=== PATIENT | male | born 1955 | race Caucasian/White ===

== ENCOUNTER 2018-08-19 12:44 | Outpatient (REF) | payer BC, SELFPAY ==
[2018-08-19 21:18] LABS: Anion Gap 9.2 mmol/L (3-11); BUN 29 mg/dL (7-18); CO2 27.8 mmol/L (21.0-32.0); Calcium 9.4 mg/dL (8.5-10.1); Chloride 102 mmol/L (98-107); Cholesterol 224 mg/dL (50-200); Glucose 104 mg/dL (70-100); HDL Cholesterol 59 mg/dL (40-60); LDL CHOLESTEROL 141 mg/dL (<100); Potassium 4.6 mmol/L (3.5-5.1); Sodium 139 mmol/L (136-145); Triglyceride 123 mg/dL (30-150)
[2018-08-21 10:10] LABS: PSA, Screening 0.2 ng/ml (0-4.5)
== END 2018-08-19 13:04 ==
LOC: NCHCN 12:44
PROVIDERS: PCP Family Medicine; Visit Provider Registered Nurse
DX: R03.0 Elevated blood-pressure reading, without diagnosis of hypertension (principal); Z00.00 Encounter for general adult medical examination without abnormal findings; Z80.42 Family history of malignant neoplasm of prostate; Z12.5 Encounter for screening for malignant neoplasm of prostate
CPT/HCPCS: 80048; 80061; 83721; 84153

== ENCOUNTER 2020-05-19 11:02 | Outpatient (REF) | payer BC, SELFPAY ==
[2020-05-19 22:49] LABS: Calculated LDL 68 mg/dL (<100); Cholesterol 151 mg/dL (<200); HDL Cholesterol 60 mg/dL (40-60); Triglyceride 119 mg/dL (<150)
[2020-05-21 08:45] LABS: PSA, Screening 0.2 ng/mL (0.0-4.5)
[2020-05-21 09:05] LABS: Hepatitis C Ab w Rflx HCV PCR Negative (Negative)
== END 2020-05-19 11:22 ==
LOC: NCHCN 11:02
PROVIDERS: PCP Family Medicine; Visit Provider Registered Nurse
DX: Z00.00 Encounter for general adult medical examination without abnormal findings (principal); R03.0 Elevated blood-pressure reading, without diagnosis of hypertension; Z11.59 Encounter for screening for other viral diseases; Z12.5 Encounter for screening for malignant neoplasm of prostate; Z80.42 Family history of malignant neoplasm of prostate
CPT/HCPCS: 80061; 84153; 86803

== ENCOUNTER 2021-12-01 20:48 | Outpatient (REF) | payer BC, SELFPAY ==
[2021-12-01 21:45] LABS: Abs Immature Grans 0.03 10^3/uL (0.0-0.06); Absolute Basophil Count 0.08 10^3/uL (0.0-0.2); Absolute Lymphocyte Count 2.51 10^3/uL (1.2-3.4); Absolute Monocyte Count 0.71 10^3/uL (0.1-0.8); Absolute Neutrophil Count 4.36 10^3/uL (1.2-6.7); Eosinophils % 1.3; HCT 43.6 % (40.0-50.0); HGB 14.2 g/dL (13.5-17.5); Immature Grans % 0.4; Lymphocytes % 32.2; MCH 29.2 pg (27.0-33.0); MCHC 32.6 % (32.0-36.0); MCV 90 fL (80-95); MPV 9.8 fL (8.0-11.0); Monocytes % 9.1; Platelet Count 251 10^3/uL (130-400); RBC 4.87 10^6/uL (4.36-5.78); RDW 13.4 % (11.8-14.1); WBC 7.79 10^3/uL (4.4-10.8)
[2021-12-01 22:11] LABS: TSH 2.21 uIU/mL (0.36-3.74)
[2021-12-01 22:13] LABS: Hemoglobin A1C 6.1 % (<5.7)
== END 2021-12-01 20:49 | disposition home or self-care (01) ==
LOC: NCHCN 20:48
PROVIDERS: PCP Family Medicine; Visit Provider Registered Nurse
DX: R53.83 Other fatigue (principal); I10 Essential (primary) hypertension; Z13.1 Encounter for screening for diabetes mellitus; Z83.3 Family history of diabetes mellitus
CPT/HCPCS: 83036; 84443; 85025

== ENCOUNTER 2022-02-08 18:51 | Outpatient (REF) | payer BC, SELFPAY ==
[2022-02-08 16:04] LABS: ALT 40 U/L (16-63); AST 27 U/L (15-37); Albumin 3.9 g/dL (3.4-5.0); Alkaline Phosphatase 83 U/L (46-116); Anion Gap 12.1 mmol/L (3-11); BUN 30 mg/dL (7-18); Bilirubin, Total 0.8 mg/dL (0.2-1.0); CO2 23.9 mmol/L (21.0-32.0); CREATININE 0.8 mg/dL (0.70-1.30); Chloride 101 mmol/L (98-107); Estimated GFR 98.83 (mL/min/1.73m2); Glucose 107 mg/dL (74-106); Potassium 4.3 mmol/L (3.5-5.1); Sodium 137 mmol/L (136-145); Total Protein 7.8 g/dL (6.4-8.2)
== END 2022-02-08 18:52 | disposition home or self-care (01) ==
LOC: NCHCN 18:51
PROVIDERS: PCP Family Medicine; Visit Provider Registered Nurse
DX: I10 Essential (primary) hypertension (principal); R73.03 Prediabetes
CPT/HCPCS: 80053

== ENCOUNTER 2023-03-14 13:05 | Outpatient (REF) | payer BC, SELFPAY ==
[2023-03-14 14:18] LABS: Anion Gap 9.7 mmol/L (3-11); BUN 25 mg/dL (7-18); CO2 22.3 mmol/L (21.0-32.0); CREATININE 0.8 mg/dL (0.70-1.30); Calcium 9.1 mg/dL (8.5-10.1); Chloride 104 mmol/L (98-107); Estimated GFR 98.21 (mL/min/1.73m2); Glucose 135 mg/dL (74-106); Sodium 136 mmol/L (136-145)
[2023-03-14 14:23] LABS: Hemoglobin A1C 6.1 % (<5.7)
== END 2023-03-14 13:06 | disposition home or self-care (01) ==
LOC: NCHCN 13:05
PROVIDERS: PCP Family Medicine; Visit Provider Family Medicine
DX: I10 Essential (primary) hypertension (principal); R73.03 Prediabetes; Z00.00 Encounter for general adult medical examination without abnormal findings
CPT/HCPCS: 80048; 83036

== ENCOUNTER 2024-03-12 12:51 | Outpatient (REF) | payer BC, SELFPAY ==
--- OUTSIDE RECORDS SUMMARY | 2024-03-12 12:59 | XMS_ITS ---
Author Organization Unknown Address [address] [place] [address] [phone] Phone Care Team Providers Care Plastics Repairer Name Role Phone FROSTFIELD CAMPBELLHA Alyssia Attending Unavailable Social History Type Status Start Date End Date Code Code Syst em Smoking History Current every day smoker 967611149 SNOMED CT Sex Male Medications Medication Start Date End Date Route Frequency Dose Code Code System Medication Instructions Home Meds Ibuprofen 200MG Oral Tablet 05/16/2023 Unknown ORAL EVERY 6 HOURS 3 TABLET 073810 RxNorm TAKE 3 TABLET ORAL THREE TIMES PER DAY FOR 3 DAYS THEN NEEDED FOR PAIN Assessment You had the following problems:CONTUSION OF LEFT FOOT, INITIAL ENCOUNTER Hospital Discharge Instructions Should you have any questions prior to discharge, please contact a member of your healthcare team. If you have left the hospital and have any questions, please contact your primary care physician. Reason For Referral No Data Found Problems Problem Start Date Resolved Date Status Code Code System CONTUSION OF LEFT FOOT, INITIAL ENCOUNTER active [id number] SNOME D-CT Allergies and Adverse Reactions Allergy Substance Reaction Severity Start Date Concern Status Co de Code System No Known Drug Allergies Active 311596288 SNOMED-CT Plan of Treatment CT CHEST W/O CONTRAST 04/27/2023 US ABDOMEN LIMITED 1 ORGAN 01/10/2022 CT CHEST W/O CONTRAST 01/10/2022 Encounters Encounter Diagnosis Start Date Code Code Sys tem Canceled operative procedure 04/13/2023 12433981 SNOMED-CT Personal Care Team Section Performer Name Performer Role Active Date Inactive Da te
--- OUTSIDE RECORDS SUMMARY | 2024-03-12 12:59 | XMS_ITS ---
Author Organization Unknown Address [address] [place] [address] [phone] Phone Care Team Providers Care Piper Installer Name Role Phone FROST DESI Cade Attending Unavailable Results CT LDCT FOR LUNG CA SCREEN - Completed: 01/10/2022 08:29 LOINC: \TM00\\12PI\\LM03\\RM80\\JOSUÉ o\\BM09\ [place] [address] ---------NAME--------- NUMBER SEX AGE ADMIT DISC. XRAY# F/C TYPE SEDA Abdullahi [id number] M 66 01/10/22 01/10/22 BB0 O/P DATE OF : 1955 M/R# [id number] PH#: [phone] \MRx\ LOCATION: TRANSCRIBED: 01/10/22 9:02 CT LDCT FOR LUNG CA SCREEN 15992 COMPLETED:01/10/22 8:[id number]: HX OF SMOKING PHYSICIAN: MARGOT R A D I O L O G Y R E P O R T Study Description: CT LDCT FOR LUNG CA SCREEN Reason for Study: HXOFSMOKING Findings: FINDINGS Images obtained through the upper abdomen show unremarkable appearance of visualized portions of the liver and spleen. Note is made of coronary artery calcification. There is no mediastinal or hilar adenopathy. Mediastinal vascular structures appear intact by noncontrast criteria. Tracheobronchial tree appears intact. No pleural effusion or pleural-based mass. The lungs show changes of severe centrilobular emphysema with no significant intrapulmonary nodule identified. IMPRESSION [Negative LDCT of the chest. Lung RADS category 1, negative. Continue annual screening with LDCT in 12 months. Impressions: Report Digitally Signed by Tito Morrow on 01/10/2022 09:02 AM EDT Electronically Signed By: TITO MORROW MD Date/Time: 01/10/22 09:02 US AORTA SCREENING - Complet ed: 01/10/2022 09:11 LOINC: \TM00\\12PI\\LM03\\RM80\\JOSUÉ o\\BM09\ [place] [address] ---------NAME--------- NUMBER SEX AGE ADMIT DISC. XRAY# F/C TYPE SEDA Abdullahi [id number] M 66 01/10/22 01/10/22 BB0 O/P DATE OF : 1955 M/R# [id number] PH#: [phone] \MRx\ LOCATION: TRANSCRIBED: 01/10/22 9:46 US AORTA SCREENING 58392 COMPLETED:01/10/22 9:11 [facility] [id number] Reason US exam: AORTIC DILATION PHYSICIAN: MARGOT R A D I O L O G Y R E P O R T Limited ultrasound examination was performed for evaluation of the aorta. There is no abdominal aortic aneurysm. The left and right common iliac vessels are within normal limits in diameter. No retroperitoneal fluid collection seen. Abdominal aorta is of normal diameter, no abdominal aortic aneurysm. Report Digitally Signed by Tito Morrow on 01/10/2022 09:46 AM EDT Electronically Signed By: TITO MORROW MD Date/Time: 01/10/22 09:46 Social History Type Status Start Date End Date Code Code Syst em Smoking History Current every day smoker [id number] SNOMED CT Sex Male Medications Medication Start Date End Date Route Frequency Dose Code Code System Medication Instructions Home Meds Ibuprofen 200MG Oral Tablet 05/16/2023 Unknown ORAL EVERY 6 HOURS 3 TABLET 410882 RxNorm TAKE 3 TABLET ORAL THREE TIMES [...] CONTUSION OF LEFT FOOT, INITIAL ENCOUNTER active [id number] SNOME D-CT Allergies and Adverse Reactions Allergy Substance Reaction Severity Start Date Concern Status Co de Code System No Known Drug Allergies Active 357666185 SNOMED-CT Plan of Treatment CT CHEST W/O CONTRAST 04/27/2023 US ABDOMEN LIMITED 1 ORGAN 01/10/2022 CT CHEST W/O CONTRAST 01/10/2022 Encounters Encounter Diagnosis Start Date Code Code Sys tem Personal history of nicotine dependence 01/10/2022 SNOMED-CT Personal Care Team Section Performer Name Performer Role Active Date Inactive Da te
--- OUTSIDE RECORDS SUMMARY | 2024-03-12 13:00 | XMS_ITS ---
Author Organization Unknown Address [address] [place] [address] [phone] Phone Care Team Providers Care Truck And Transport Mechanic Name Role Phone LUCA SMITH Registered Nurse Unavailable MARIA Choe Attending Unavailable KATHRIN Choe ER Unavailable LUIS M SHANE Primary Unavailable UNLISTED PROVIDER - REQUESTED Xhandoff Un available Results XR FOOT 3V LT* - Completed: 05/11/2023 09:02 LOINC: [place], [place] [address] PACS RIGGING AND CONTR[employer]S AIRCRAFT MECHANIC REPORT Patient Name: MARK STACK MRN: Sex: : Age: [id number] M 1955 67 Account: Accession: Admit: StayType: [id number] 05/11/2023 E/R Ordered: Order ID: Submitted: Ordering Provider: 05/11/2023 08:49 [id number] ZACHARY FARRIS Completed: Technologist: Resulted: 05/11/2023 09:02 PW 05/11/2023 09:44 Study Description: XR FOOT 3V LT Study Reason: Pain Technique: 2D digital imaging was performed. 3 images were obtained. COMPARISON: None. FINDINGS: Bones: No acute fractures present. No bony destructive lesion is seen. There is a small plantar osteophyte. There is an enthesophyte at the posterior calcaneus. Joints: No dislocation is present. The joint spaces are well maintained. Soft tissues: Unremarkable. IMPRESSION: No acute abnormality. Report Digitally Signed by Kaden Fairchild on 05/11/2023 09:44 AM EST Social History Type Status Start Date End Date Code Code Syst em Smoking History Current every day smoker 057080692 SNOMED CT Sex Male Vital Signs Vital Sign Value Unit [place] Value [place] Unit Date/Time Recent/Initial? Code Code System Body Mass Index 29.84 kg/m2 05/11/2023 08:48 Initial 41114 -5 LOINC Systolic Blood Pressure 151 mm[Hg] 05/11/2023 08:48 Initial 8480- 6 LOINC Diastolic Blood Pressure 105 mm[Hg] 05/11/2023 08:48 Initial 8462- 4 LOINC Body Surface Area 2.25 m2 05/11/2023 08:48 Initial 3140- 1 LOINC Height 182.880 0 cm 72.00 in 05/11/2023 08:48 Initial 8302- 2 LOINC O2 Saturation 97 % 2022 08:48 Initial 56775 -5 LOINC Pulse 61.0 /min 05/11/2023 08:48 Initial 8867- 4 LOINC Respiration 18 /min 05/11/20 08:48 Initial 9279- 1 LOINC Temperature 36.2 Juhi 97.2 F 05/11/20 08:48 Initial 8310- 5 LOINC Weight 99.79 kg 220.00 lbs 05/11/2023 08:48 Initial 25643 -7 LOINC Medications Medication Start Date End Date Route Frequency Dose Code Code System Medication Instructions Home Meds Ibuprofen 200MG Oral Tablet 05/16/2023 Unknown ORAL EVERY 6 HOURS 3 TABLET 626324 RxNorm TAKE 3 TABLET ORAL THREE TIMES [...] CONTUSION OF LEFT FOOT, INITIAL ENCOUNTER active [id number] SNOME D-CT Allergies and Adverse Reactions Allergy Substance Reaction Severity Start Date Concern Status Co de Code System No Known Drug Allergies Active 598541419 SNOMED-CT Plan of Treatment CT CHEST W/O CONTRAST 04/27/2023 US ABDOMEN LIMITED 1 ORGAN 01/10/2022 CT CHEST W/O CONTRAST 01/10/2022 Encounters Encounter Diagnosis Start Date Code Code Sys tem 05/11/2023 [id number] SNOMED-CT Personal Care Team Section Performer Name Performer Role Active Date Inactive Da te
--- OUTSIDE RECORDS SUMMARY | 2024-03-12 13:00 | XMS_ITS ---
Author Organization Unknown Address [address] [place] [address] [phone] Phone Care Team Providers Care Granite Cutter Name Role Phone MARGOT Cade Attending Unavailable LUIS M SHANE Primary Unavailable Results CT LDCT FOR LUNG CA SCREEN - Completed: 04/27/2023 08:20 [facility] [place], [place] [address] PACS FINAL INSPECTOR MOTORCYLES REPORT Patient Name: MARK STACK MRN: Sex: : Age: [id number] M 1955 67 Account: Accession: Admit: StayType: [id number] 04/27/2023 O/P Ordered: Order ID: Submitted: Ordering Provider: 04/27/2023 07:56 [id number] DESI GUZMAN Completed: Technologist: Resulted: 04/27/2023 08:20 SLG 04/27/2023 08:54 Study Description: CT LDCT FOR LUNG CA SCREEN Study Reason: FORMER SMOKER TECHNIQUE: Imaging Protocol: Low Dose Technique CONTRAST MATERIAL None COMPARISON: No exams were available for comparison FINDINGS: LUNGS: COPD emphysematous changes again noted.. No new infiltrates nor pleural effusions. No significant pulmonary nodules. No findings in the trachea and mainstem bronchi. No bronchiectasis. MEDIASTINUM: There is no obvious hilar nor mediastinal adenopathy. CARDIAC: Heart size is normal. Coronary artery calcification again noted. There is no pericardial effusion. The diameter of the ascending thoracic aorta is enlarged, measuring 4.5 cm. Similar to previous. Diameter of the mid aortic arch measures 3.2 cm, also mildly prominent and the diameter of the proximal descending thoracic aorta measures 3.2 cm, mildly prominent. Diameter of the descending thoracic aorta is also mildly prominent. OTHER: No adrenal masses. No splenomegaly. OSSEOUS: No significant osseous lesions. No fractures. IMPRESSION: 1. No significant pulmonary nodules. No infiltrates nor pleural effusions. 2. Enlarged diameter of the ascending thoracic aorta as described above, measuring 4.5 cm Lung RADS category: 1S-no significant pulmonary nodules. Aortic finding as above. Report Digitally Signed by Wyatt Joshi on 04/27/2023 08:54 AM EST 04/27/[email or web address] Cheers In via fax Social History Type Status Start Date End Date Code Code Syst em Smoking History Current every day smoker 544775498 SNOMED CT Sex Male Medications Medication Start Date End Date Route Frequency Dose Code Code System Medication Instructions Home Meds Ibuprofen 200MG Oral Tablet 05/16/2023 Unknown ORAL EVERY 6 HOURS 3 TABLET 329066 RxNorm TAKE 3 TABLET ORAL THREE TIMES [...] CONTUSION OF LEFT FOOT, INITIAL ENCOUNTER active 67639536416357329 SNOME D-CT Allergies and Adverse Reactions Allergy Substance Reaction Severity Start Date Concern Status Co de Code System No Known Drug Allergies Active 676685801 SNOMED-CT Plan of Treatment CT CHEST W/O CONTRAST 04/27/2023 US ABDOMEN LIMITED 1 ORGAN 01/10/2022 CT CHEST W/O CONTRAST 01/10/2022 Encounters Encounter Diagnosis Start Date Code Code Sys tem Encounter for screening for malignant neoplasm of respiratory organs 04/27/2023 SNOMED-CT Personal Care Team Section Performer Name Performer Role Active Date Inactive Da te
--- OUTSIDE RECORDS SUMMARY | 2024-03-12 13:00 | XMS_ITS ---
Author Organization Unknown Address [address] [place] [address] [phone] Phone Care Team Providers Care Wood Patternmaker Name Role Phone SILVIA VILLA Registered Nurse Unavailable MARIA Choe Attending Unavailable LUIS M SHANE Primary Unavailable UNLISTED PROVIDER - REQUESTED Xhandoff Un available Social History Type Status Start Date End Date Code Code Syst em Smoking History Current every day smoker 907664176 SNOMED CT Sex Male Vital Signs Vital Sign Value Unit [place] Value [place] Unit Date/Time Recent/Initial? Code Code System Body Mass Index 28.63 kg/m2 05/16/2023 09:20 Initial 51802 -5 [facility] Systolic Blood Pressure 173 mm[Hg] 05/16/2023 09:20 Initial 8480- 6 [facility] Diastolic Blood Pressure 111 mm[Hg] 05/16/2023 09:20 Initial 8462- 4 [facility] Body Surface Area 2.27 m2 05/16/2023 09:20 Initial 3140- 1 [facility] Height 186.690 0 cm 73.50 in 05/16/2023 09:20 Initial 8302- 2 [facility] O2 Saturation 98 % 2022 09:20 Initial 97171 -5 [facility] Pulse 65.0 /min 05/16/2023 09:20 Initial 8867- 4 [facility] Respiration 17 /min 05/16/20 09:20 Initial 9279- 1 [facility] Temperature 35.6 Juhi 96.1 F 05/16/20 09:20 Initial 8310- 5 [facility] Weight 99.79 kg 220.00 lbs 05/16/2023 09:20 Initial 98240 -7 [facility] Medications Medication Start Date End Date Route Frequency Dose Code Code System Medication Instructions Home Meds Ibuprofen 200MG Oral Tablet 05/16/2023 Unknown ORAL EVERY 6 HOURS 3 TABLET 545789 RxNorm TAKE 3 TABLET ORAL THREE TIMES [...] CONTUSION OF LEFT FOOT, INITIAL ENCOUNTER active 02418451060195688 SNOME D-CT Allergies and Adverse Reactions Allergy Substance Reaction Severity Start Date Concern Status Co de Code System No Known Drug Allergies Active 398980026 SNOMED-CT Plan of Treatment CT CHEST W/O CONTRAST 04/27/2023 US ABDOMEN LIMITED 1 ORGAN 01/10/2022 CT CHEST W/O CONTRAST 01/10/2022 OUTPATIENT PLAN: Additional Physician Instructions: Ice, keep foot elevated above heart as much as possible, consider using ALESHIA wrap. Wear stiff shoes while healing. Discharge Medications Medication Dosage Route Frequency Prescribing MD Special Instructions Ibuprofen 200MG Oral Tablet 3 TABLET ORAL EVERY 6 HOURS MARIA Choe TAKE 3 TABLET ORAL THREE TIMES PER DAY FOR 3 DAYS THEN NEEDED FOR PAIN HOSPITAL COURSE AND TESTING: Medications given this visit: Ordered & Completed Meds Table Ordered Medication Start Date/Time Dosage Route Frequency Status Ibuprofen 200MG Oral Tablet 05/16/2023 00:00 3 TABLET ORAL EVERY 6 HOURS active Lab Results: This Visit: No Labs Available RADIOLOGY RESULTS: Study Description: XR FOOT 3V LT Findings: Bones: No acute fractures present. No bony destructive lesion is seen. There is a small plantar osteophyte. There is an enthesophyte at the posterior calcaneus. Joints: No dislocation is present. The joint spaces are well maintained. Soft tissues: Unremarkable. Impression: No acute abnormality. Encounters Encounter Diagnosis Start Date Code Code Sys tem 05/16/2023 [id number] SNOMED-CT Personal Care Team Section Performer Name Performer Role Active Date Inactive Da lian
--- OUTSIDE RECORDS SUMMARY | 2024-03-12 13:01 | XMS_ITS ---
Author Organization Unknown Address [address] [place] [address] [phone] Phone Care Team Providers Care Tmh Teacher Name Role Phone MARGOT WEEKS Attending Unavailable Results US RENAL OR AORTA - Complete d: 11/19/2020 17:12 LOINC: ABDOMINAL ULTRASOUND, LIMITE D:Limited ultrasound was performed to evaluate for possible abdominal aortic aneurysm. Abdominal aorta is within normal limits in diameter, mid aortic diameter is about 21 mm. Right and left common iliac arteries are also within normal limits in diameter. Maximal diameter right common iliac about 10 mm and left common iliac about 13 mm. No retroperitoneal fluid collection seen. CONCLUSION:No evidence of abdominal aortic aneurysm. Dictated by: SYEDA MORROW M.D. RADIOLOGIST Transcribed by: WILLIAM 06/17/21/09:28 D Monday, June 14, 2021 12:10:24 PM [id number] Electronically Reviewed and Signed By: TITO MORROW M.D. RADIOLOGIST 07/01/21 08:41 Copy for: MARGOT CAMPBELLHA via link Social History Type Status Start Date End Date Code Code Syst em Smoking History Current every day smoker 729703101 SNOMED CT Sex Male Medications Medication Start Date End Date Route Frequency Dose Code Code System Medication Instructions Home Meds Ibuprofen 200MG Oral Tablet 05/16/2023 Unknown ORAL EVERY 6 HOURS 3 TABLET 643845 RxNorm TAKE 3 TABLET ORAL THREE TIMES [...] CONTUSION OF LEFT FOOT, INITIAL ENCOUNTER active 64140548415711627 SNOME D-CT Allergies and Adverse Reactions Allergy Substance Reaction Severity Start Date Concern Status Co de Code System No Known Drug Allergies Active 307510737 SNOMED-CT Plan of Treatment CT CHEST W/O CONTRAST 04/27/2023 US ABDOMEN LIMITED 1 ORGAN 01/10/2022 CT CHEST W/O CONTRAST 01/10/2022 Encounters Encounter Diagnosis Start Date Code Code Sys tem Thoracic aortic ectasia 11/19/2020 SN ED-CT Personal Care Team Section Performer Name Performer Role Active Date Inactive Da lian
[2024-03-12 14:37] LABS: Anion Gap 8.8 mmol/L (3-11); BUN 15 mg/dL (7-18); CO2 25.2 mmol/L (21.0-32.0); CREATININE 0.9 mg/dL (0.70-1.30); Calcium 9.2 mg/dL (8.5-10.1); Chloride 106 mmol/L (98-107); Estimated GFR 94.19 (mL/min/1.73m2); Glucose 105 mg/dL (74-106); Sodium 140 mmol/L (136-145)
[2024-03-12 15:25] LABS: Hemoglobin A1C 5.9 % (<5.7)
== END 2024-03-12 12:52 | disposition home or self-care (01) ==
LOC: NCHCN 12:51
PROVIDERS: PCP Family Medicine; Visit Provider Family Medicine
DX: I10 Essential (primary) hypertension (principal); R73.03 Prediabetes
CPT/HCPCS: 80048; 83036

== ENCOUNTER 2024-04-15 09:35 | Outpatient (REF) | payer BC, SELFPAY ==
[2024-04-15 15:32] LABS: HGB 15.9 g/dL (13.5-17.5); MCH 30.1 pg (27.0-33.0); MCHC 32.4 % (32.0-36.0); MCV 93 fL (80-95); RBC 5.29 10^6/uL (4.36-5.78); RDW 13.4 % (11.8-14.1); RDW-SD 45.7 fL
[2024-04-15 15:33] LABS: Absolute Basophil Count 0.01 10^3/uL (0.0-0.2); Absolute Eosinophil Count 0.01 10^3/uL (0.0-0.7); Absolute Monocyte Count 0.05 10^3/uL (0.1-0.8); Absolute Neutrophil Count 0.53 10^3/uL (1.2-6.7); Basophils % 0.1 %; Eosinophils % 0.1 %; Lymphocytes % 2.2 %; MPV 10.9 fL (8.0-11.0); Monocytes % 0.6 %; Neutrophils % 5.9 %; Platelet Count 177 10^3/uL (130-400)
[2024-04-15 15:34] LABS: Abs Immature Grans 0.03 10^3/uL (0.0-0.06)
[2024-04-15 15:57] LABS: ALT 43 U/L (16-63); AST 27 U/L (15-37); Albumin 4.2 g/dL (3.4-5.0); Alkaline Phosphatase 114 U/L (46-116); Anion Gap 12.6 mmol/L (3-11); BUN 13 mg/dL (7-18); Bilirubin, Total 0.67 mg/dL (0.2-1.0); CO2 24.4 mmol/L (21.0-32.0); CREATININE 0.9 mg/dL (0.70-1.30); Calcium 9.5 mg/dL (8.5-10.1); Calculated LDL 73 mg/dL (<100); Chloride 105 mmol/L (98-107); Cholesterol 149 mg/dL (<200); Estimated GFR 94.19 (mL/min/1.73m2); Glucose 103 mg/dL (74-106); HDL Cholesterol 58 mg/dL (40-60); Lipase 34 U/L (16-77); Potassium 4.6 mmol/L (3.5-5.1); Sodium 142 mmol/L (136-145); Triglyceride 91 mg/dL (<150)
[2024-04-15 16:17] LABS: Amylase 44 U/L (25-115)
== END 2024-04-15 09:36 | disposition home or self-care (01) ==
LOC: NCHCN 09:35
PROVIDERS: PCP Family Medicine; Visit Provider Family Medicine
DX: K57.92 Diverticulitis of intestine, part unspecified, without perforation or abscess without bleeding (principal); Z13.220 Encounter for screening for lipoid disorders
CPT/HCPCS: 80053; 80061; 83690; 82150; 85025